=== PATIENT | female | born 1980 | race Caucasian/White ===

== ENCOUNTER → 2018-02-06 09:47 | Outpatient (CLI) | payer OTHER, SELFPAY ==
[2018-02-06 12:13] LABS: Absolute Lymphocyte Count 1.39 X10^3/ul (0.83-4.51); Basophil# 0.02 X10^3/uL; Basophil% 0.4 % (0-1); Eosinophil# 0.36 X10^3/uL; Eosinophils% 6.8 % (0-5); Hematocrit 42.7 % (37-47); Hemoglobin 14.1 g/dl (12.0-15.0); Lymphocyte # 1.39 X10^3/ul (4.0); Lymphocyte % 26.1 % (19-41); Mean Corpuscular Hgb 32.6 pg (27.0-32.0); Mean Corpuscular Volume 98.8 fL (81-99); Mean Platelet Vol. 10.7 fl (6.2-12.0); Monocyte# 0.52 X10^3/uL; Monocyte% 9.8 % (0-10); Neutrophil # 3.03 X10^3/uL (2.7-7.7); Neutrophil % 56.7 % (47-70); Platelet Count 309 K/mm3 (150-450); RBC Distribution Width CV 12.2 % (11.6-14.6); RBC Distribution Width SD 43.7 fl (35.1-43.9); Red Blood Count 4.32 M/mm3 (4.2-5.4); White Blood Count 5.3 K/mm3 (4.4-11.0)
[2018-02-06 12:16] LABS: POSITIVE COUNT NO; POSITIVE DIFFERENTIAL NO; POSITIVE MORPHOLOGY NO
[2018-02-06 12:34] LABS: ALB/GLOB Ratio 1.1 RATIO (0.9-2.4); AST(SGOT) 21 U/L (15-37); Alanine Aminotransfer ALT/SGPT 30 U/L (13-56); Albumin, Serum 3.9 g/dL (3.2-5.0); Alkaline Phosphatase 88 U/L (45-117); Anion Gap 10 (5-15); BUN 8 mg/dL (7-18); BUN/Creat Ratio 13.5 RATIO (10-20); Calcium,Total 8.8 mg/dL (8.5-10.1); Chloride 107 mmol/L (98-107); Creatinine, Serum 0.59 mg/dL (0.55-1.02); EST Glomerular Filtration Rate 122 mL/min (>60); Est Glom Filt Rate - Afr Amer 147 mL/min (>60); Globulin 3.4 g/dL (2.2-4.2); Glucose 88 mg/dL (74-106); Potassium 4.1 mmol/L (3.5-5.1); Protein, Total 7.3 g/dL (6.4-8.2); Sodium Level 140 mmol/L (136-145); T4 Free Direct 0.87 ng/dL (0.76-1.46); Thyroid Stim Hormone (TSH) 2.62 uIU/mL (0.358-3.74)
== END ==
PROVIDERS: Family Provider Family Medicine; PCP Family Medicine
DX: E03.9 Hypothyroidism, unspecified (principal); E04.1 Nontoxic single thyroid nodule
CPT/HCPCS: 36415; 80053; 84439; 84443; 85025

== ENCOUNTER → 2018-07-17 09:56 | Outpatient (CLI) | payer OTHER, SELFPAY ==
[2018-07-17 12:43] LABS: Absolute Lymphocyte Count 1.64 X10^3/ul (0.83-4.51); Absolute Neutrophil Count 3.7 X10^3/uL (2.0-7.7); Basophil# 0.02 X10^3/uL; Basophil% 0.3 % (0-1); Eosinophil# 0.33 X10^3/uL; Eosinophils% 5.5 % (0-5); Hemoglobin 13.6 g/dl (12.0-15.0); Lymphocyte # 1.64 X10^3/ul (4.0); Lymphocyte % 27.2 % (19-41); Mean Corpuscular Hgb 32.8 pg (27.0-32.0); Mean Corpuscular Volume 96.4 fL (81-99); Mean Platelet Vol. 10.5 fl (6.2-12.0); Monocyte# 0.37 X10^3/uL; Monocyte% 6.1 % (0-10); Neutrophil # 3.65 X10^3/uL (2.7-7.7); Neutrophil % 60.7 % (47-70); Platelet Count 299 K/mm3 (150-450); RBC Distribution Width CV 12.1 % (11.6-14.6); RBC Distribution Width SD 41.5 fl (35.1-43.9); Red Blood Count 4.15 M/mm3 (4.2-5.4)
[2018-07-17 12:47] LABS: POSITIVE COUNT NO; POSITIVE DIFFERENTIAL NO; POSITIVE MORPHOLOGY NO
[2018-07-17 12:57] LABS: ALB/GLOB Ratio 0.9 RATIO (0.9-2.4); AST(SGOT) 14 U/L (15-37); Alanine Aminotransfer ALT/SGPT 30 U/L (13-56); Albumin, Serum 3.5 g/dL (3.2-5.0); Alkaline Phosphatase 68 U/L (45-117); Anion Gap 8 (5-15); BUN 10 mg/dL (7-18); BUN/Creat Ratio 14.2 RATIO (10-20); Calcium,Total 8.7 mg/dL (8.5-10.1); Chloride 108 mmol/L (98-107); EST Glomerular Filtration Rate 99 mL/min (>60); Est Glom Filt Rate - Afr Amer 120 mL/min (>60); Free T3 2.7 pg/mL (2.18-3.98); Globulin 3.8 g/dL (2.2-4.2); Glucose 101 mg/dL (74-106); Potassium 3.6 mmol/L (3.5-5.1); Protein, Total 7.3 g/dL (6.4-8.2); Sodium Level 143 mmol/L (136-145); T4 Free Direct 0.89 ng/dL (0.76-1.46); Thyroid Stim Hormone (TSH) 2.63 uIU/mL (0.358-3.74)
== END ==
PROVIDERS: Family Provider Family Medicine; PCP Family Medicine; Referring Provider Family Medicine; Visit Provider Family Medicine
DX: E03.9 Hypothyroidism, unspecified (principal); E66.9 Obesity, unspecified; Z68.30 Body mass index [BMI] 30.0-30.9, adult
CPT/HCPCS: 36415; 80053; 84439; 84443; 84481; 85025

== ENCOUNTER → 2019-06-23 14:18 | Outpatient (CLI) | payer OTHER, SELFPAY ==
[2018-12-29 09:07] VITALS: BMI 30.9
[2019-06-23 15:31] LABS: Absolute Neutrophil Count 3.5 X10^3/uL (2.0-7.7); Basophil# 0.03 X10^3/uL; Basophil% 0.5 % (0-1); Eosinophil# 0.47 X10^3/uL; Eosinophils% 7.1 % (0-5); Hematocrit 39.9 % (37-47); Hemoglobin 13.3 g/dL (12.0-15.0); Lymphocyte % 31.8 % (19-41); Mean Corp Hgb Conc 33.3 g/dL (32-36); Mean Corpuscular Hgb 33.4 pg (27.0-32.0); Mean Corpuscular Volume 100.3 fL (81-99); Mean Platelet Vol. 10.2 fl (6.2-12.0); Monocyte# 0.46 X10^3/uL; NRBC Flagged by Analyzer 0 % (0-5); Neutrophil # 3.52 X10^3/uL (2.7-7.7); Neutrophil % 53.1 % (47-70); Platelet Count 339 K/mm3 (150-450); RBC Distribution Width SD 43.7 fl (35.1-43.9); Red Blood Count 3.98 M/mm3 (4.2-5.4); White Blood Count 6.6 K/mm3 (4.4-11.0)
[2019-06-23 15:59] LABS: Free T3 2.8 pg/mL (2.18-3.98); T4 Free Direct 0.92 ng/dL (0.76-1.46); Thyroid Stim Hormone (TSH) 1.98 uIU/mL (0.358-3.74)
== END ==
LOC: MFPLAB 14:19
PROVIDERS: PCP Family Medicine; Visit Provider Family Medicine
DX: E03.9 Hypothyroidism, unspecified (principal); J45.909 Unspecified asthma, uncomplicated
CPT/HCPCS: 36415; 84439; 84443; 84481; 85025

== ENCOUNTER → 2019-09-15 14:51 | Outpatient (CLI) | payer OTHER, SELFPAY ==
[2018-12-29 09:07] VITALS: BMI 30.9
[2019-09-15 18:09] LABS: Free T3 2.7 pg/mL (2.18-3.98); T4 Free Direct 1.03 ng/dL (0.76-1.46); Thyroid Stim Hormone (TSH) 1.92 uIU/mL (0.358-3.74)
== END ==
PROVIDERS: PCP Family Medicine; Referring Provider Family Medicine; Visit Provider Family Medicine
DX: E03.9 Hypothyroidism, unspecified (principal)
CPT/HCPCS: 36415; 84439; 84443; 84481

== ENCOUNTER → 2020-10-02 10:37 | Outpatient (CLI) | payer OTHER, SELFPAY ==
[2018-12-29 09:07] VITALS: BMI 30.9
[2020-10-02 12:30] LABS: Cholesterol 199 mg/dL (200); Creatinine, Serum 0.61 mg/dL (0.55-1.02); EST Glomerular Filtration Rate 116 mL/min (>60); Est Glom Filt Rate - Afr Amer 140 mL/min (>60); High Density Lipoprotein 50 mg/dL; T4 Free Direct 1.09 ng/dL (0.76-1.46); Thyroid Stim Hormone (TSH) 1.53 uIU/mL (0.358-3.74); Triglycerides 196 mg/dL; Very Low Density Lipoprotein 39 mg/dL (5-40)
== END ==
PROVIDERS: PCP Family Medicine; Referring Provider Family Medicine; Visit Provider Family Medicine
DX: Z00.00 Encounter for general adult medical examination without abnormal findings (principal); E03.9 Hypothyroidism, unspecified
CPT/HCPCS: 36415; 80061; 82565; 84439; 84443

== ENCOUNTER 2021-05-24 09:26 | Outpatient (CLI) | payer OTHER, SELFPAY ==
[2021-05-24 10:43] LABS: T4 Free Direct 1.16 ng/dL (0.76-1.46); Thyroid Stim Hormone (TSH) 1.95 uIU/mL (0.358-3.74)
== END 2021-05-24 23:59 | disposition home or self-care (01) ==
LOC: MFPLAB 09:28
PROVIDERS: PCP Family Medicine; Referring Provider Family Medicine; Visit Provider Nurse Practitioner Family
DX: E03.9 Hypothyroidism, unspecified (principal)
CPT/HCPCS: 36415; 84439; 84443

== ENCOUNTER → 2021-12-03 | Outpatient (CLI) | payer OTHER, SELFPAY ==
[2021-12-03 10:01] LABS: Hematocrit 40.8 % (37-47); Hemoglobin 13.9 g/dL (12.0-15.0)
[2021-12-03 10:36] LABS: Hemoglobin A1c 5.5 % (3.8-5.6)
[2021-12-03 10:49] LABS: Cholesterol 186 mg/dL (200); EST Glomerular Filtration Rate 97 mL/min (>60); Est Glom Filt Rate - Afr Amer 118 mL/min (>60); High Density Lipoprotein 55 mg/dL; Thyroid Stim Hormone (TSH) 1.66 uIU/mL (0.358-3.74); Triglycerides 148 mg/dL; Very Low Density Lipoprotein 30 mg/dL (5-40)
== END | disposition home or self-care (01) ==
LOC: MFPLAB 09:12
PROVIDERS: PCP Family Medicine; Referring Provider Family Medicine; Visit Provider Family Medicine
DX: Z00.00 Encounter for general adult medical examination without abnormal findings (principal); J45.909 Unspecified asthma, uncomplicated; E03.9 Hypothyroidism, unspecified; E66.9 Obesity, unspecified
CPT/HCPCS: 36415; 80061; 82565; 83036; 84443; 85014; 85018

== ENCOUNTER → 2022-12-05 | Outpatient (CLI) | payer OTHER, SELFPAY ==
[2022-12-05 12:45] LABS: Cholesterol 216 mg/dL (200); Creatinine, Serum 0.74 mg/dL (0.55-1.02); EST Glomerular Filtration Rate 91 mL/min (>60); Est Glom Filt Rate - Afr Amer 110 mL/min (>60); High Density Lipoprotein 59 mg/dL; Thyroid Stim Hormone (TSH) 2.15 uIU/mL (0.358-3.74); Triglycerides 168 mg/dL; Very Low Density Lipoprotein 34 mg/dL (5-40)
[2022-12-05 19:04] LABS: Hemoglobin A1c 5.2 % (3.8-5.6)
== END | disposition home or self-care (01) ==
LOC: MFPLAB 09:38
PROVIDERS: PCP Family Medicine; Visit Provider Family Medicine
DX: Z00.00 Encounter for general adult medical examination without abnormal findings (principal); Z13.220 Encounter for screening for lipoid disorders; E03.9 Hypothyroidism, unspecified; E66.9 Obesity, unspecified
CPT/HCPCS: 36415; 80061; 82565; 83036; 84443

== ENCOUNTER → 2023-12-22 | Outpatient (CLI) | payer OTHER, SELFPAY ==
--- NOTE | 2023-12-22 09:00 | MRI_ITS ---
STUDY: MRI LUMBAR SPINE WITHOUT CONTRAST REASON FOR EXAM: Female, 43 years old. SCIATICA TECHNIQUE: Standardized fat and water weighted pulse sequences were obtained in the sagittal and axial planes. COMPARISON: None FINDINGS: T12-L1: Normal endplates. Normal disc height, hydration and morphology. Normal bilateral facet joints. Normal central canal and bilateral lateral recesses. Normal bilateral intervertebral neural foramina. Normal lumbar lordosis. There is no substantial scoliosis. Normal conus medullaris that terminates at the L1. L1-2: Normal endplates. Normal disc height, hydration and morphology. Normal bilateral facet joints. Normal central canal and bilateral lateral recesses. Normal bilateral intervertebral neural foramina. L2-3: Normal endplates. Normal disc height, hydration and morphology. Normal bilateral facet joints. Normal central canal and bilateral lateral recesses. Normal bilateral intervertebral neural foramina. L3-4: Normal endplates. Normal disc height, hydration and morphology. Normal bilateral facet joints. Normal central canal and bilateral lateral recesses. Normal bilateral intervertebral neural foramina. L4-5: Mild broad disc protrusion produces mild spinal stenosis and mild bilateral neural foraminal stenosis. L5-S1: Moderate broad disc protrusion with a 15 mm edematous right paracentral and preforaminal disc sequestration (free fragment) produces moderate spinal stenosis with severe right lateral recess stenosis with effacement of the right S1 nerve root and mild right neural foraminal stenosis. Normal visualized sacral ala. Normal visualized paraspinous soft tissue structures. MRI/Spine Lumbar (Routine) IMPRESSION: Multilevel degenerative changes, as described above. Electronically Signed: Sarath Lawson MD at 10:22 EST ,
== END | disposition home or self-care (01) ==
PROVIDERS: PCP Family Medicine; Referring Provider Nurse Practitioner Family; Visit Provider Nurse Practitioner Family
DX: M54.31 Sciatica, right side (principal); M54.50 Low back pain, unspecified
CPT/HCPCS: 72148

== ENCOUNTER 2024-02-02 05:24 | Day surgery (SDC) | payer OTHER, SELFPAY ==
[2024-01-16 09:07] LABS: Absolute Lymphocyte Count 1.01 X10^3/uL (0.83-4.51); Basophil# 0.02 X10^3/uL; Basophil% 0.5 % (0-1); Eosinophil# 0.35 X10^3/uL; Eosinophils% 8.8 % (0-5); Hematocrit 37.2 % (37-47); Hemoglobin 12.4 g/dL (12.0-15.0); Lymphocyte # 1.01 X10^3/ul (0.83-4.51); Lymphocyte % 25.5 % (19-41); Mean Corp Hgb Conc 33.3 g/dL (32-36); Mean Corpuscular Hgb 32.5 pg (27.0-32.0); Mean Corpuscular Volume 97.6 fL (81-99); Mean Platelet Vol. 9.8 fl (6.2-12.0); Monocyte# 0.55 X10^3/uL; Monocyte% 13.9 % (0-10); NRBC Flagged by Analyzer 0 % (0-5); Neutrophil # 2.02 X10^3/uL (2.7-7.7); Platelet Count 336 K/mm3 (150-450); RBC Distribution Width CV 11.9 % (11.6-14.6); RBC Distribution Width SD 42.9 fl (35.1-43.9); Red Blood Count 3.81 M/mm3 (4.2-5.4)
[2024-01-16 09:45] LABS: Anion Gap 3 (5-15); BUN 7 mg/dL (7-18); BUN/Creat Ratio 11.4 RATIO (10-20); Calcium,Total 8.6 mg/dL (8.5-10.1); Chloride 112 mmol/L (98-107); Creatinine, Serum 0.62 mg/dL (0.55-1.02); EST Glomerular Filtration Rate 113 mL/min (>60); Est Glom Filt Rate - Afr Amer 136 mL/min (>60); Glucose 95 mg/dL (74-106); Sodium Level 142 mmol/L (136-145)
[2024-01-16 10:30] LABS: Magnesium 2.2 mg/dL (1.6-2.6)
[2024-01-16 11:34] LABS: HIV - WCH Non-Reactive (Nonreactive); Hepatitis B Surface Antibody Non-Reactive; Hepatitis C Antibody Non-Reactive (Nonreactive)
[2024-01-17 04:07] LABS: Hepatitis A AB, Total Negative (Negative)
[2024-02-02] VITALS (13 sets, daily range): BP systolic 116–138; BP diastolic 74–90; PULSE 71–88; RESP 16–18; TEMP 36.1–37.2; O2SAT 94–100; BMI 30.2
[2024-02-02 05:59] LABS: Internal QC Validated? YES +Cl - CLEAR BKGD; Pregnancy, Urine Negative Negative
[2024-02-02] MEDS: 0.9% Normal Saline (1000mL) 1,000 ML 15 ML IV (06:15)
[2024-02-02] MEDS: Magnesium 1 GM over 15 mins IV (06:16)
[2024-02-02] MEDS: Acetaminophen 500 MG Tablet 1000 MG PO (06:28)
--- NOTE | 2024-02-02 06:30 | RAD_ITS ---
STUDY: X-RAY - LUMBAR SPINE REASON FOR EXAM: Female, 43 years old. MICRODISCECTOMY L5-S1 TECHNIQUE: Single intraoperative view of the lumbar spine . COMPARISON: None FINDINGS: Intraoperative image of the lumbosacral spine demonstrate surgical device localizing the L5-S1 disc level . RAD/Spine 1 View Any Level IMPRESSION: Intraoperative localizing image of the lumbosacral spine. Electronically Signed: Azael Boothe DO at 16:45 EST ,
--- NOTE | 2024-02-02 06:52 | PRE.ANES_ITS ---
ASA Classification* ASA Classification ASA Classification: 2 Assessment & Plan Anesthesia* Anesthesia Assessment Anesthesia Assessment: Discussed sedation and/or anesthesia options, risks, benefits, and alternatives with patient/parents/legal guardian/POA. Questions invited. The patient/parents/legal guardian/POA seems to understand and agrees to proceed with anesthesia plan. Reviewed the physical assessment, medical history, allergy history and patient home medications list prior to surgery/procedure/anesthetic and documented any changes. Performed airway and anesthesia risk assessments. Anesthesia Type Anesthesia Type: General Anesthesia Focused Assessment* Temperature: 97.9 F Pulse Rate: 72 Blood Pressure: 116/75 Respiratory Rate: 18 Pulse Ox: 98 Airway Assessment Mouth opens: >3 cm Mallampati Score: II Focused Labs Anesthesia Preop lab: CBC WBC 4.0 K/mm3 (4.4-11.0) L 01/16/24 08:42 RBC 3.81 M/mm3 (4.2-5.4) L 01/16/24 08:42 Hgb 12.4 g/dL (12.0-15.0) 01/16/24 08:42 Hct 37.2 % (37-47) 01/16/24 08:42 Plt Count 336 K/mm3 (150-450) 01/16/24 08:42 CHEMISTRY Potassium 4.0 mmol/L (3.5-5.1) 01/16/24 08:42 Sodium 142 mmol/L (136-145) 01/16/24 08:42 Magnesium 2.2 mg/dL (1.6-2.6) 01/16/24 08:42 BUN 7 mg/dL (7-18) 01/16/24 08:42 Creatinine 0.62 mg/dL (0.55-1.02) 01/16/24 08:42 Glucose 95 mg/dL (74-106) 01/16/24 08:42 TSH 0.910 uIU/mL (0.358-3.740) 01/16/24 08:42 COAG Urine Test Negative Negative 02/02/24 05:40 Pre-Assessment Diagnosis/Proposed Procedure Planned Operative Procedure(s): LUMBAR MICRODISCECTOMY L5-S1 RIGHT Anesthesia History 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 When Was Last Pacemaker Check QUESTION #4 FULL TEXT: You/Your Family Experience fever (hyperthermia) with Anesthesia Last Oral Intake Last Oral intake: Last Oral Intake NPO since 03:00 02/02/24 06:22 Meds taken in AM with sips of Yes 02/02/24 06:22 water? Meds patient instructed to take am of surgery PONV PONV - mucking machine operator: PONV - mucking machine operator Female Yes 01/12/24 09:09 HX of Motion Sickness No 01/12/24 09:09 HX of N/V After Surgery No 01/12/24 09:09 Non-Smoker Yes 01/12/24 09:09 Duration of Surgery greater Yes 01/12/24 09:09 than 60 minutes Number of Risk Factors 3 01/12/24 09:09 PONV Score Moderate Risk 01/12/24 09:09 Height & Weight Height & Weight: Anesthesia: Height & Weight Height 5 ft 4 in 02/02/24 06:22 Weight: 80 kg 02/02/24 06:22 Body Mass Index (BMI) 30.2 02/02/24 06:22 Respiratory Assessment Respiratory Assessment - mucking machine operator: Respiratory Tract Infection Hx - mucking machine operator Hx Respiratory Tract Infection No 01/12/24 09:09 STOP Sleep Apnea STOP Sleep Apnea - mucking machine operator: STOP Sleep Apnea - mucking machine operator Hx Hypertension No 01/12/24 09:09 Hx Sleep Apnea No 01/12/24 09:09 CPAP BIPAP Do you snore loudly (louder No 01/12/24 09:09 than talking or can be heard Do you often feel tired/ No 01/12/24 09:09 fatigued/ sleepy during daytime? Has anyone observed you stop No 01/12/24 09:09 breathing during sleep? STOP Results Negative 01/12/24 09:09 QUESTION #5 FULL TEXT : Do you snore loudly (louder than talking or can be heard through closed doors)? 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 Specify any problems Hx of Preganancy in last 3 No 01/12/24 09:09 Months Nurse Filling Out Transfusion DSCHRIBER 01/12/24 09:09 & Questions: Date: 01/12/24 01/12/24 09:09 Time: 09:10 01/12/24 09:09 Patient unable to answer at this time (ie. confused, unrespo /Reproduction History /Reproductive History - mucking machine operator: /Reproductive Hx- mucking machine operator Hx Now No 01/12/24 09:09 Gestational Age (in weeks): EDC: Hx Hx Para Hx Section SAB No 01/12/24 09:09 Active Medications Active Medications: Current Medications Generic Name Dose Route Start Last Admin Trade Name Freq PRN Reason Stop Dose Admin Acetaminophen 1,000 mg 02/02/24 07:30 02/02/24 06:28 Acetaminophen 500 Mg Tablet PO 02/02/24 07:31 1,000 mg X1 ONE Administration Tranexamic Acid 1,000 mg/ 110 mls @ 440 mls/hr 02/02/24 07:30 Sodium Chloride IV 02/02/24 07:44 X1 ONE Tranexamic Acid 1,000 mg/ 110 mls @ 440 mls/hr 02/02/24 07:30 Sodium Chloride IV 02/02/24 07:44 X1 ONE Cefazolin Sodium 2 gm/ N/A 20 mls @ 400 mls/hr 02/02/24 07:30 IV 02/02/24 07:32 PREOP ONE Magnesium Sulfate 1 gm/ 102 mls @ 408 mls/hr 02/02/24 07:30 02/02/24 06:16 Dextrose IV 02/02/24 07:44 408 mls/hr X1 ONE Administration Sodium Chloride 1,000 mls @ 15 mls/hr 02/02/24 05:55 02/02/24 06:15 IV 02/07/24 19:14 15 mls/hr .Q48H PAT Administration Protocol Insulin Human Lispro 1 - 6 unit 02/02/24 07:30 Insulin Lispro 100 Unit/Ml Insuln.Pen SC 02/02/24 18:00 Q4H PRN PRN BG>/= 180, SEE PROTOCOL Protocol PFSH Medical History Wears contact lenses History of steroid therapy Low iron Back pain Difficulty swallowing History of hiatal hernia Non-smoker Hx of fracture of ankle Asthma GERD (gastroesophageal reflux disease) Hypothyroidism Home Medications ?Medication ?Instructions ?Recorded ?Last Taken ?Type albuterol sulfate 90 mcg/actuation 1 inh inhalation PRN PRN shortness 12/29/18 Unknown History aerosol inhaler of breath or wheezing #9 grams beclomethasone dipropionate 80 1 inh inhalation BID 12/29/18 Unknown History mcg/actuation HFA breath activated aerosol (Qvar RediHaler) cetirizine 10 mg capsule 10 mg PO DAILY 12/29/18 Unknown History montelukast 10 mg tablet 10 mg PO QHS #90 tabs 12/29/18 Unknown History ibuprofen 200 mg capsule 200 mg PO Q6H PRN pain 12/25/23 Unknown History levothyroxine 75 mcg tablet 75 mcg PO QDAY 12/25/23 Unknown History yvjcoszsnvdq-fagoibkp-dxdk 1 tab PO DAILY 12/25/23 Unknown History fumarate 18 mg-folic acid 400 mcg tablet (One-A-Day Women's Complete) omeprazole 20 mg tablet,delayed 20 mg PO DAILY PRN PRN GERD 01/12/24 Unknown History release Allergy/AdvReac Type Severity Reaction Status Date / Time dog dander Allergy Mild rash Verified 02/02/24 06:11 ragweed pollen Allergy Mild rash Verified 02/02/24 06:11 Family History Grandmother Thyroid disorder Asthma Surgical History History of esophagogastroduodenoscopy (EGD) History of partial thyroidectomy (~2017) History of cholecystectomy (~2012) Social History Smoking Status: Never smoker Review of Systems (Anesthesia) ROS Narrative System reviewed and no additional complaints, except as documented.
[2024-02-02 07:04] LABS: Bedside Glucose 119 mg/dL (74-106)
--- NOTE | 2024-02-02 07:34 | PCM.HP.BLA ---
History and Physical MR#: [id number] Acct: [id number] Name: HOWARD KWONG Rep #: [id number] : 1980 Provider: Dr. Harish Wyatt MD Age/Sex: 43/F Location: [facility] [place] Status: Signed Intake Vital Signs 12/25/2407:28 Height 5 ft 4 in Weight: 177 lb BMI 30.4 Intake Visit Reasons: lumbar spine Chief Complaint: back cyst Allergies dog dander Allergy (Mild, Verified 01/29/24 08:26) rashragweed pollen Allergy (Mild, Verified 01/29/24 08:26) rash Medications ?Medication ?Instructions ?Recorded ?Confirmed ?Type albuterol sulfate 90 mcg/actuation 1 inh inhalation PRN PRN shortness 12/29/18 01/29/24 History aerosol inhaler of breath or wheezing #9 grams beclomethasone dipropionate 80 1 inh inhalation BID 12/29/18 01/29/24 History mcg/actuation HFA breath activated aerosol (Qvar RediHaler) cetirizine 10 mg capsule 10 mg PO DAILY 12/29/18 01/29/24 History montelukast 10 mg tablet 10 mg PO QHS #90 tabs 12/29/18 01/29/24 History ibuprofen 200 mg capsule 200 mg PO Q6H PRN pain 12/25/23 01/29/24 History levothyroxine 75 mcg tablet 75 mcg PO QDAY 12/25/23 01/29/24 History flstgdtynijt-pmzcunkv-vehm 1 tab PO DAILY 12/25/23 01/29/24 History fumarate 18 mg-folic acid 400 mcg tablet (One-A-Day Women's Complete) omeprazole 20 mg tablet,delayed 20 mg PO DAILY PRN PRN GERD 01/12/24 01/29/24 History release PFSH Medical History Wears contact lenses History of steroid therapy Low iron Back pain Difficulty swallowing History of hiatal hernia Non-smoker Hx of fracture of ankle Asthma GERD (gastroesophageal reflux disease) Hypothyroidism Surgical History History of esophagogastroduodenoscopy (EGD) History of partial thyroidectomy (~2017) History of cholecystectomy (~2012) Family History Grandmother Thyroid disorder Asthma Social History Smoking Status: Never smoker HPI lumbar spine Details: This documentation accurately reflects the service provided and the decisions made by me, Dr. Harish Wyatt MD 01/29/24 0821. Part of today?s visit was documented by Leyda MCLAUGHLIN, acting as scribe. HOWARD KWONG is a 43 year old F here today for pre-op lumbar spine dos: 02/02/24. She continues to have low back pain radiating down to the right lower extremity and has difficulty with dragging her foot after walking a while. 12/25/23: HOWARD KWONG is a 43 year old F here today NEW patient for low back pain that she has had since the beginning of August. She states that the only thing she can think of that would be the cause of her pain is she was helping lift a heavy box. Her pain does radiates down the right leg and into her calf. She does have a tingling sensation in her calf. She has a burning pain over her anterior thigh. No pain down the left leg. This is the first time of her ever having any back issues.She has a recent MRI done at [facility] on 12/21. 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 She has had to do her job with an ice pack and when braking her pain is increased. Prior to this she liked to go on walks and stay busy but has not been able to do what she wishes to do since the onset of her symptoms. Pain is worse with sitting. She states that she has been on steroid twice which did help temporarily for the pain. She has tried a tens unit and ice. She did do physical therapy but it wasn't very helpful because they were unsure how to treat her because they didn't know what exactly was causing her pain. She takes Tylenol arthritis and Motrin for her pain. Ortho Exam General General: Yes no acute distress Neurologic: Yes alert and Yes oriented x3 Spine SPINE TESTING CERVICAL THORACIC LUMBAR Musculoskeletal Strength 0=absent - 5=normal Details: Neurological exam of the lower extremities shows 5x5 power. Normal sensations across all dermatomes. No hyperreflexia. No midline or paraspinal tenderness. Passive straight leg raise positive on right. Unable to perform lumbar flexion. Coding Level of Care Code Off vis,est,level 4 Diagnoses Lumbar disc herniation M51.26 Time Spent (min) 35 Assessment and Plan Assessment and Plan (1) Lumbar disc herniation: Status: Acute Plan Again reviewed imaging today in the clinic and reviewed prior MRI from 12/22/23. Xrays shows loss of disc height at L5-S1, no instability on flexion/extension views. MRI shows a large L5-S1 right paracentral disc herniation with moderate spinal stenosis with severe right lateral recess stenosis. Modic changes noticed at the L5-S1 disc. Again explained imaging findings in detail. She has a fairly large disc herniation occupying a fairly large amount of volume within the canal. She denies any bladder bowel symptoms but has severe radicular pain that has not improved with multiple courses of oral steroids as well as physical therapy. After 4 months, she is still limited and is unable to pick things from the floor. 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 She has continued to have low back pain for the last 4 months with no improvement with a large disc herniation. Explained the natural history of a disc herniation. Recommended surgical L5-S1 micro discectomy. Discussed risk and benefits of surgery. The risks include but are not limited to infection, bleeding, hematoma formation, recurrent disc herniation, need for further surgery, need for fusion in the future, iatrogenic instability, CSF leak, DVT, pulm embolism, cardiopulmonary event. Patient understands and agrees to proceed with surgery. Consent was signed. All restrictions after surgery were discussed in detail.
[2024-02-02] MEDS: Cefazolin 2 GM in Syringe IV (07:50)
[2024-02-02] MEDS: TRANEXAMIC ACID 1,000 MG in 0.9% Normal Saline (100mL Bag) 100 ML 440 MG IV ×2 (07:50→10:08)
[2024-02-02] MEDS: Bupiv/Epi 0.25% 30 ML Vial (08:14)
[2024-02-02] MEDS: Triamcinolone Acetonide 40 MG/ML Vial (10:00)
--- NOTE | 2024-02-02 10:32 | PCM.OPRPT ---
Procedures Musculoskeletal [id number]: Other Procedure See Report Operative Report (Standard) Operative Information Date of Procedure: 02/02/24 Pre-Operative Diagnosis: L5-S1 right paracentral disc herniation Post-Operative Diagnosis: Same Surgery/Procedure Performed: L5-S1 right discectomy physicians and surgeons: Yes Medical Cost Consultant: Carolina Quiroz Tasks completed by inside sales assistant: Closing Type of Anesthesia: General RN Documented Start/Stop Times: Operation Date: 02/02/24 07:30 Case Time Into Pre-Op 02/02/24 05:53 Out of Pre-Op 02/02/24 07:39 Anesthesia Start 02/02/24 07:43 Into Room 02/02/24 07:43 Procedure Start 02/02/24 08:15 Procedure End 02/02/24 10:15 Procedure Start Time: 08:15 Procedure Stop Time: 10:15 Select all DRAINS/GRAFTS/IMPLANTS that apply: None Estimated Blood Loss: 5 cc Specimen collected: No Description of surgery: Preoperative diagnosis: L5-S1 right paracentral disc herniation Postoperative diagnosis: Same Name of procedure: L5-S1 right sided microdiscectomy CPT 50218 Attending Surgeon: Dr. Harish Wyatt Estimated blood loss: 5 mL Anesthesia: General Indications: Patient is a 43-year-old lady who presented with low back pain and severe right lower extremity radiation. MRI revealed L5-S1 Right paracentral disc herniation. All options of treatment were discussed which included continued nonoperative treatment measures like rest physical therapy, injections. After prolonged nonsurgical treatment, patient requested surgical intervention for microdiscectomy. All risks and benefits associated with the procedure were explained to the patient. The risks include but are not limited to infection, bleeding, injury to nerves and vessels, persistent paresthesia, incidental dural tear, recurrent disc herniation, spinal instability and need for fusion or other procedures in future, persistent pain, persistent weakness and numbness, etc. Procedure: The patient was identified in the preoperative holding suite using Unique patient identifiers. Skin was marked, consent was reviewed, and all questions were answered. The patient was then brought back to the operative room. A surgical timeout was performed to make sure correct procedure was being done on the correct patient and all operative room staff were on the same page. General endotracheal anesthesia was then given to the patient. The patient was then turned prone onto a Eladio table over a Simon frame. The back was prepped and draped in usual fashion. Preoperative antibiotic was given. A final timeout was then again done just before starting the procedure. An incision line was marked on C-arm AP view to be at the L5-S1 level interspace. An incision was then carried out Just to the right of the midline. Incision was also made into the deep fascia. A blunt dissector was then passed to reach the undersurface of the L5 lamina on the right confirmed on C-arm. Retractor cannula was then placed over this blunt dissector. Under direct light visualization, pituitary was used to remove the remnant of the muscle fibers covering the flavum. Once the flavum was exposed, bipolar was used to obtain hemostasis around it. Straight biting forceps were then used to remove the superficial and deeper layers of the ligamentum flavum. Up biting forceps were then used to complete the resection of the ligamentum flavum going to the lateral recess. Epidural fat was carefully removed with the help of pituitary. This expose the dural sac as well as the traversing S1 nerve root on the right. The dura and traversing nerve root were then identified with the help of a [place] #4. Adhesions under the nerve root and the underlying disc were carefully dissected. Retraction cannula was then rotated to retract the S1 nerve root medially. [place] blunt dissector was then utilized to create an opening in the PLL to expose the extruded disc fragments. These were removed piecemeal. Additional disc fragments were then teased out with the help of a nerve hook and ballpoint probe. The probe was then used to explore inferiorly and superiorly and medially to tease out more disc fragments. Further loose disc fragments from the disc space were also removed with help of pituitary. All remove disc fragments were laid down to confirm that the volume removed was comparable to that seen on the MRI. Once adequate decompression was obtained by removal of all loose disc fragments including the ones that were extruded, the retraction cannula was again rotated to again expose the S1 nerve root to make sure there is no tension on it. 40 mg Kenalog was then sprinkled over the traversing nerve root. Retractor cannula was then removed. Local with epinephrine was injected along the tract cannula. The skin closure was done with 2-0 Vicryl for subcutaneous tissue augmented with Dermabond for the skin. 2 x 2 gauze was then placed over the wound covered with Tegaderm. The patient was then turned supine onto a hospital bed. The patient was extubated and taken to PACU in stable condition. The patient tolerated the procedure well and no complications occurred. Estimated blood loss for the entire surgery was 5 mL. No instrumentation was utilized in this case. No dural tear occurred in this case. I was present for the entirety of the case and performed the surgery myself. Surgical Findings: See operative note Complications Complications: No
--- NOTE | 2024-02-02 10:42 | PCM.POST.ANE ---
Anesthesia: Postop Eval I Current Vital Signs Temperature: 97 F Pulse Rate: 82 Blood Pressure: 136/84 Respiratory Rate: 16 Pulse Ox: 100 Oxygen Delivery Method: Simple Mask Oxygen Flow Rate (L/min): 6 Assessment Airway patent: Yes Spontaneous unlabored respirations: Yes Mental status: Asleep nausea: No Vomiting: No Anesthesia Complication: No Fluid Hydration Crystalloid volume administer (ml): 900 Total IV fluid infused: 900 Progress Note Post-operative progress note: oral airway in place Anesthesia document: Postop Eval 1 completed: Yes
--- NOTE | 2024-02-02 13:26 | POSTOPAN2_ITS ---
Anesthesia Postop Eval I Sum Postop Eval Completion status Anesthesia document: Postop Eval 1 completed: Yes Anesthesia Postop Eval I Summary Anesthesia Postop Eval I Summary: Anesthesia Postop Eval I: Assessment Summary Airway patent Yes 02/02/24 10:44 SAP DIRECTOR.[email or web address] Spontaneous unlabored Yes 02/02/24 10:44 SAP DIRECTORANNIE respirations Mental status Asleep 02/02/24 10:44 SAP DIRECTOR.DAVID nausea No 02/02/24 10:44 SAP DIRECTOR.DAVID Vomiting No 02/02/24 10:44 SAP DIRECTOR.DAVID Anesthesia Postop Eval I: Fluid Summary Crystalloid volume administer 900 02/02/24 10:44 SAP DIRECTOR.DAVID (ml) Colloids volume administered ( ml) Blood Product volume administered (ml) Total IV fluid infused 900 02/02/24 10:44 SAP DIRECTOR.DAVID Anesthesia Postop Eval I: Summary Notes Anesthesia Complication No 02/02/24 10:44 HILARIO Anesthesia Complication Comment: Post-operative progress note oral airway in 02/02/24 10:[address] Anesthesia: Postop Eval II Evaluation Mental status: Awake Pain Level: 0 nausea: No Vomiting: No
--- NOTE | 2024-02-02 13:26 | PCM.POSTANE2 ---
Anesthesia Postop Eval I Sum Postop Eval Completion status Anesthesia document: Postop Eval 1 completed: Yes Anesthesia Postop Eval I Summary Anesthesia Postop Eval I Summary: Anesthesia Postop Eval I: Assessment Summary Airway patent Yes 02/02/24 10:44 LEAD BURNER APPRENTICE.POOBHolden Spontaneous unlabored Yes 02/02/24 10:44 LEAD BURNER APPRENTICEANNIE respirations Mental status Asleep 02/02/24 10:44 LEAD BURNER APPRENTICE.DAVID nausea No 02/02/24 10:44 LEAD BURNER APPRENTICE.DAVID Vomiting No 02/02/24 10:44 LEAD BURNER APPRENTICE.DAVID Anesthesia Postop Eval I: Fluid Summary Crystalloid volume administer 900 02/02/24 10:44 LEAD BURNER APPRENTICE.DAVID (ml) Colloids volume administered ( ml) Blood Product volume administered (ml) Total IV fluid infused 900 02/02/24 10:44 LEAD BURNER APPRENTICE.DAVID Anesthesia Postop Eval I: Summary Notes Anesthesia Complication No 02/02/24 10:44 HILARIO Anesthesia Complication Comment: Post-operative progress note oral airway in 02/02/24 10:[address] Anesthesia: Postop Eval II Evaluation Mental status: Awake Pain Level: 0 nausea: No Vomiting: No
== END 2024-02-02 14:14 | disposition home or self-care (01) ==
LOC: SDC 05:24 → AC 05:25
PROVIDERS: Anesthesiology; PCP Family Medicine; Referring Provider Orthopaedic Surgery Orthopaedic Surgery of the Spine; Visit Provider Orthopaedic Surgery Orthopaedic Surgery of the Spine
PROC: 0SB24ZZ Excision of Lumbar Vertebral Disc, Percutaneous Endoscopic Approach (ICD-10-PCS; CPT 62287; principal; 2024-02-02 07:15)
DX: M51.27 Other intervertebral disc displacement, lumbosacral region (principal); K21.9 Gastro-esophageal reflux disease without esophagitis; E03.9 Hypothyroidism, unspecified; J45.909 Unspecified asthma, uncomplicated; Z79.899 Other long term (current) drug therapy; Z79.51 Long term (current) use of inhaled steroids
CPT/HCPCS: 63030; 00630; 36415; 72020; 76000; 80048; 81025; 82962; 83735; 84443; 85025; 86703; 86706; 86708; 86803; 86850; 86900; 86901; 87081; 93005; J2405; J3475

== ENCOUNTER → 2024-05-21 | Outpatient (CLI) | payer OTHER, SELFPAY ==
[2024-05-21 12:17] LABS: Absolute Lymphocyte Count 1.87 X10^3/uL (0.83-4.51); Absolute Neutrophil Count 5.1 X10^3/uL (2.0-7.7); Basophil# 0.04 X10^3/uL; Basophil% 0.5 % (0-1); Eosinophil# 0.53 X10^3/uL; Eosinophils% 6.6 % (0-5); Hematocrit 40.9 % (37-47); Hemoglobin 13.5 g/dL (12.0-15.0); Lymphocyte # 1.87 X10^3/ul (0.83-4.51); Lymphocyte % 23.1 % (19-41); Mean Corpuscular Hgb 32.1 pg (27.0-32.0); Mean Corpuscular Volume 97.1 fL (81-99); Mean Platelet Vol. 10.1 fl (6.2-12.0); Monocyte# 0.51 X10^3/uL; Monocyte% 6.3 % (0-10); NRBC Flagged by Analyzer 0 % (0-5); Neutrophil # 5.11 X10^3/uL (2.7-7.7); Neutrophil % 63.1 % (47-70); Platelet Count 404 K/mm3 (150-450); RBC Distribution Width CV 12.5 % (11.6-14.6); RBC Distribution Width SD 44.5 fl (35.1-43.9); Red Blood Count 4.21 M/mm3 (4.2-5.4); White Blood Count 8.1 K/mm3 (4.4-11.0)
[2024-05-21 12:49] LABS: Hemoglobin A1c 5.6 % (<=5.6)
[2024-05-21 12:55] LABS: ALB/GLOB Ratio 1.5 RATIO (0.9-2.4); AST(SGOT) 24 U/L (<=31); Alanine Aminotransfer ALT/SGPT 26 U/L (<=34); Albumin, Serum 4.2 g/dL (3.5-5.0); Alkaline Phosphatase 71 U/L (35-104); Anion Gap 11 (5-15); BUN 6 mg/dL (4-19); BUN/Creat Ratio 9.7 RATIO (10-20); Calcium,Total 9.2 mg/dL (7.6-11.0); Carbon Dioxide 22.8 mmol/L (21.0-32.0); Chloride 105 mmol/L (98-108); Creatinine, Serum 0.67 mg/dL (0.70-1.20); EST Glomerular Filtration Rate 111 (>60); Globulin 2.8 g/dL (2.2-4.2); Glucose 87 mg/dL (70-99); Sodium Level 139 mmol/L (133-145); Total Bilirubin 0.33 mg/dL (0.00-1.30)
== END | disposition home or self-care (01) ==
LOC: MFPLAB 11:02
PROVIDERS: PCP Family Medicine; Referring Provider Family Medicine; Visit Provider Family Medicine
DX: J45.30 Mild persistent asthma, uncomplicated (principal); E03.9 Hypothyroidism, unspecified; R63.5 Abnormal weight gain
CPT/HCPCS: 36415; 80053; 83036; 84443; 85025